=== PATIENT | male | born 2000 | race Caucasian/White ===

== ENCOUNTER 2022-10-20 11:11 | Inpatient (IN) | payer OTHER ==
[~2022-10-20] VITALS: Ht 182.9 cm; Wt 115.7 kg
[2022-10-20 14:00] VITALS: BP 130/75; TEMP 98.5; O2SAT 97
[2022-10-20] MEDS ORDERED: NALOXONE INJ 0.4MG/1ML VIAL IV PRN (15:40)
[2022-10-20] MEDS ORDERED: traZODone 25MG PER 1/2 TABLET PO PRN (15:50)
[2022-10-20] MEDS ORDERED: HOME MED LIST COMPLETE! XX SCH (17:40)
[2022-10-20 20:00] VITALS: BP 128/74; TEMP 98.7; O2SAT 98
[2022-10-20] MEDS ORDERED: MIRA1POW3 PO (21:13)
[2022-10-20] MEDS ORDERED: METH-1164 PO (21:13)
[2022-10-20] MEDS ORDERED: LOVE1INJ2 SC (21:13)
[2022-10-20] MEDS ORDERED: C 50TAB PO (21:13)
[2022-10-20] MEDS ORDERED: VITMTA PO (21:13)
[2022-10-20] MEDS ORDERED: VITA200032 PO (21:13)
[2022-10-20] MEDS ORDERED: ACET-897 PO (21:13)
[2022-10-20] MEDS ORDERED: DILA2TAB6 PO (21:13)
[2022-10-20] MEDS: DOCUSATE SODIUM 100MG CAPSULE PO SCH (21:20)
[2022-10-20] MEDS: SENNA 8.6 MG TAB (SENOKOT) PO SCH (21:20)
[2022-10-20] MEDS: oxyCODONE 5MG TAB PO PRN (21:21)
[2022-10-20] MEDS: ENOXAPARIN 30MG/0.3ML SYRINGE (J1650 PER 10MG) SC SCH (21:24)
[2022-10-20] MEDS: GABAPENTIN 300 MG CAP PO SCH (21:24)
[2022-10-20] MEDS: ACETAMINOPHEN 500 MG TAB PO SCH (21:24)
[2022-10-21 06:00] VITALS: BP 128/70; TEMP 98.1; O2SAT 97
[2022-10-21 06:36] LABS: BASO # 0.1 10^3/uL (0.0-0.2); BASO % 0.6 % (0.0-1.0); EOS # 0.4 10^3/uL (0.0-0.5); EOS % 4.1 % (0.0-3.0); HEMATOCRIT 28.8 % (42.0-52.0); HEMOGLOBIN 9.6 g/dl (13.5-17.5); LYMPH # 1.8 10^3/uL (1.5-5.0); MEAN CORPUSCULAR HEMOGLOBIN 29.2 pg (27.0-33.0); MEAN CORPUSCULAR HGB CONC 33.3 g/dl (32.0-36.5); MEAN CORPUSCULAR VOLUME 87.5 fl (80.0-96.0); MONO # 0.9 10^3/uL (0.0-0.8); MONO % 8.7 % (2.0-8.0); NEUTROPHILS # 6.4 10^3/uL (1.5-8.5); NEUTROPHILS % 65.3 % (36.0-66.0); PLATELET COUNT, AUTOMATED 383 10^3/uL (150-450); RED BLOOD COUNT 3.29 10^6/uL (4.30-6.10); WHITE BLOOD COUNT 9.7 10^3/uL (4.0-10.0)
[2022-10-21 07:25] LABS: ALKALINE PHOSPHATASE 181 U/L (46-116); ALT/SGPT 121 U/L (7.0-40); AST/SGOT 77 U/L (<34); BILIRUBIN,TOTAL 0.7 MG/DL (0.3-1.2); BLOOD UREA NITROGEN 17 MG/DL (9-23); CALCIUM LEVEL 9.1 MG/DL (8.5-10.1); CARBON DIOXIDE LEVEL 26 MMOL/L (20-31); CHLORIDE LEVEL 102 MMOL/L (98-107); CREATININE FOR GFR 0.64 MG/DL (0.70-1.30); GLOMERULAR FILTRATION RATE > 60.0 (>60); GLUCOSE, FASTING 99 MG/DL (60-100); POTASSIUM SERUM 4.3 MMOL/L (3.5-5.1); SODIUM LEVEL 136 MMOL/L (136-145); TOTAL PROTEIN 6.6 G/DL (5.7-8.2)
[2022-10-21] MEDS: ENOXAPARIN 30MG/0.3ML SYRINGE (J1650 PER 10MG) SC SCH ×2 (07:34→20:57)
[2022-10-21] MEDS: PANTOPRAZOLE 40MG TAB (PROTONIX) PO SCH (07:34)
[2022-10-21] MEDS: CYCLOBENZAPRINE 5MG TABLET PO PRN (07:34)
[2022-10-21] MEDS: ACETAMINOPHEN 500 MG TAB PO SCH ×3 (07:35→20:55)
[2022-10-21] MEDS: ASCORBIC ACID 500 MG TAB PO SCH (07:35)
[2022-10-21] MEDS: VITAMIN D 1,000 INTERNATIONAL UNITS TABLET PO SCH (07:35)
[2022-10-21] MEDS: GABAPENTIN 300 MG CAP PO SCH ×3 (07:35→20:54)
[2022-10-21] MEDS: oxyCODONE 5MG TAB PO PRN (07:36)
[2022-10-21] MEDS: DOCUSATE SODIUM 100MG CAPSULE PO SCH ×2 (07:36→20:54)
[2022-10-21] MEDS: HYDROmorphone 2 MG TAB PO PRN (12:19)
[2022-10-21 14:00] VITALS: BP 132/71; TEMP 98; O2SAT 100
[2022-10-21 14:53] LABS: HEPATITIS B SURFACE ANTIGEN NEGATIVE (NEGATIVE)
[2022-10-21 15:14] LABS: HEPATITIS C VIRUS ABY INDEX 0.2 INDEX (<0.8)
[2022-10-21 15:15] LABS: HEPATITIS B CORE ANTIBODY IGM NEGATIVE (NEGATIVE)
[2022-10-21 20:45] VITALS: BP 129/69; TEMP 98.3; O2SAT 95
[2022-10-21] MEDS: SENNA 8.6 MG TAB (SENOKOT) PO SCH (20:54)
[2022-10-22 06:23] VITALS: BP 133/69; TEMP 98.2; O2SAT 96
[2022-10-22] MEDS: CYCLOBENZAPRINE 5MG TABLET PO PRN ×2 (07:03→20:25)
[2022-10-22] MEDS: HYDROmorphone 2 MG TAB PO PRN ×2 (07:03→20:25)
[2022-10-22] MEDS: DOCUSATE SODIUM 100MG CAPSULE PO SCH ×2 (09:00→20:24)
[2022-10-22] MEDS: oxyCODONE 5MG TAB PO PRN (09:41)
[2022-10-22] MEDS: ACETAMINOPHEN 500 MG TAB PO SCH ×3 (09:41→21:00)
[2022-10-22] MEDS: PANTOPRAZOLE 40MG TAB (PROTONIX) PO SCH (09:42)
[2022-10-22] MEDS: VITAMIN D 1,000 INTERNATIONAL UNITS TABLET PO SCH (09:42)
[2022-10-22] MEDS: ENOXAPARIN 30MG/0.3ML SYRINGE (J1650 PER 10MG) SC SCH ×2 (09:42→20:23)
[2022-10-22] MEDS: GABAPENTIN 300 MG CAP PO SCH ×3 (09:42→20:24)
[2022-10-22] MEDS: ASCORBIC ACID 500 MG TAB PO SCH (09:42)
[2022-10-22 14:00] VITALS: BP 135/77; TEMP 97.6; O2SAT 99
[2022-10-22] MEDS: SENNA 8.6 MG TAB (SENOKOT) PO SCH (20:24)
[2022-10-22 20:31] VITALS: BP 140/82; TEMP 98.2; O2SAT 96
[2022-10-23 05:05] VITALS: BP 122/62; TEMP 98.4; O2SAT 96
[2022-10-23 06:55] LABS: BASO # 0.1 10^3/uL (0.0-0.2); BASO % 0.8 % (0.0-1.0); EOS # 0.3 10^3/uL (0.0-0.5); EOS % 3.4 % (0.0-3.0); HEMATOCRIT 28.4 % (42.0-52.0); HEMOGLOBIN 9.2 g/dl (13.5-17.5); LYMPH # 1.8 10^3/uL (1.5-5.0); LYMPH % 21.6 % (24.0-44.0); MEAN CORPUSCULAR HEMOGLOBIN 28.8 pg (27.0-33.0); MEAN CORPUSCULAR HGB CONC 32.4 g/dl (32.0-36.5); MEAN CORPUSCULAR VOLUME 88.8 fl (80.0-96.0); MONO # 0.8 10^3/uL (0.0-0.8); NEUTROPHILS # 5.1 10^3/uL (1.5-8.5); NEUTROPHILS % 60.4 % (36.0-66.0); PLATELET COUNT, AUTOMATED 407 10^3/uL (150-450); WHITE BLOOD COUNT 8.5 10^3/uL (4.0-10.0)
[2022-10-23 07:26] LABS: BLOOD UREA NITROGEN 16 MG/DL (9-23); CALCIUM LEVEL 8.4 MG/DL (8.5-10.1); CARBON DIOXIDE LEVEL 26 MMOL/L (20-31); CHLORIDE LEVEL 104 MMOL/L (98-107); GLOMERULAR FILTRATION RATE > 60.0 (>60); GLUCOSE, FASTING 102 MG/DL (60-100); POTASSIUM SERUM 4.3 MMOL/L (3.5-5.1); SODIUM LEVEL 138 MMOL/L (136-145)
[2022-10-23] MEDS: ENOXAPARIN 30MG/0.3ML SYRINGE (J1650 PER 10MG) SC SCH ×2 (07:45→20:57)
[2022-10-23] MEDS: ASCORBIC ACID 500 MG TAB PO SCH (07:47)
[2022-10-23] MEDS: VITAMIN D 1,000 INTERNATIONAL UNITS TABLET PO SCH (07:47)
[2022-10-23] MEDS: DOCUSATE SODIUM 100MG CAPSULE PO SCH ×2 (07:47→20:56)
[2022-10-23] MEDS: ACETAMINOPHEN 500 MG TAB PO SCH ×3 (07:47→20:57)
[2022-10-23] MEDS: CYCLOBENZAPRINE 5MG TABLET PO PRN ×2 (07:48→13:52)
[2022-10-23] MEDS: PANTOPRAZOLE 40MG TAB (PROTONIX) PO SCH (07:48)
[2022-10-23] MEDS: GABAPENTIN 300 MG CAP PO SCH ×3 (07:48→20:56)
[2022-10-23] MEDS: oxyCODONE 5MG TAB PO PRN ×2 (07:49→13:52)
[2022-10-23 19:24] VITALS: BP 128/72; TEMP 98.1; O2SAT 99
[2022-10-23] MEDS: SENNA 8.6 MG TAB (SENOKOT) PO SCH (20:56)
[2022-10-24 06:23] VITALS: BP 120/67; TEMP 97.6; O2SAT 99
[2022-10-24] MEDS: CYCLOBENZAPRINE 5MG TABLET PO PRN ×2 (06:27→15:19)
[2022-10-24] MEDS: oxyCODONE 5MG TAB PO PRN ×2 (06:28→15:20)
[2022-10-24] MEDS: GABAPENTIN 300 MG CAP PO SCH ×3 (08:53→20:28)
[2022-10-24] MEDS: PANTOPRAZOLE 40MG TAB (PROTONIX) PO SCH (08:54)
[2022-10-24] MEDS: ACETAMINOPHEN 500 MG TAB PO SCH ×3 (08:54→20:28)
[2022-10-24] MEDS: VITAMIN D 1,000 INTERNATIONAL UNITS TABLET PO SCH (08:54)
[2022-10-24] MEDS: ASCORBIC ACID 500 MG TAB PO SCH (08:54)
[2022-10-24] MEDS: ENOXAPARIN 30MG/0.3ML SYRINGE (J1650 PER 10MG) SC SCH ×2 (08:55→20:28)
[2022-10-24] MEDS: DOCUSATE SODIUM 100MG CAPSULE PO SCH ×2 (08:56→19:32)
[2022-10-24 14:00] VITALS: BP 125/72; TEMP 98.2; O2SAT 100
[2022-10-24 19:09] VITALS: BP 116/61; TEMP 97; O2SAT 100
[2022-10-24] MEDS: SENNA 8.6 MG TAB (SENOKOT) PO SCH (19:32)
[2022-10-25 05:23] VITALS: BP 125/68; TEMP 97.2; O2SAT 100
[2022-10-25] MEDS: ACETAMINOPHEN 500 MG TAB PO SCH ×3 (08:32→22:13)
[2022-10-25] MEDS: PANTOPRAZOLE 40MG TAB (PROTONIX) PO SCH (08:32)
[2022-10-25] MEDS: GABAPENTIN 300 MG CAP PO SCH ×3 (08:32→21:00)
[2022-10-25] MEDS: DOCUSATE SODIUM 100MG CAPSULE PO SCH ×2 (08:32→21:00)
[2022-10-25] MEDS: VITAMIN D 1,000 INTERNATIONAL UNITS TABLET PO SCH (08:33)
[2022-10-25] MEDS: CYCLOBENZAPRINE 5MG TABLET PO PRN (08:34)
[2022-10-25] MEDS: ENOXAPARIN 30MG/0.3ML SYRINGE (J1650 PER 10MG) SC SCH ×2 (08:34→22:12)
[2022-10-25] MEDS: ASCORBIC ACID 500 MG TAB PO SCH (08:34)
[2022-10-25] MEDS: oxyCODONE 5MG TAB PO PRN (08:34)
[2022-10-25 14:00] VITALS: BP 117/70; TEMP 97.2; O2SAT 98
[2022-10-25 20:00] VITALS: BP 103/51; TEMP 97; O2SAT 100
[2022-10-25] MEDS: SENNA 8.6 MG TAB (SENOKOT) PO SCH (21:00)
[2022-10-26 06:00] VITALS: BP 121/58; TEMP 96.8; O2SAT 98
[2022-10-26] MEDS: CYCLOBENZAPRINE 5MG TABLET PO PRN (06:32)
[2022-10-26] MEDS: HYDROmorphone 2 MG TAB PO PRN (06:34)
[2022-10-26] MEDS: DOCUSATE SODIUM 100MG CAPSULE PO SCH ×2 (09:00→19:50)
[2022-10-26] MEDS: ASCORBIC ACID 500 MG TAB PO SCH (09:10)
[2022-10-26] MEDS: PANTOPRAZOLE 40MG TAB (PROTONIX) PO SCH (09:10)
[2022-10-26] MEDS: VITAMIN D 1,000 INTERNATIONAL UNITS TABLET PO SCH (09:10)
[2022-10-26] MEDS: GABAPENTIN 300 MG CAP PO SCH ×3 (09:10→19:50)
[2022-10-26] MEDS: ACETAMINOPHEN 500 MG TAB PO SCH ×3 (09:10→21:00)
[2022-10-26] MEDS: ENOXAPARIN 30MG/0.3ML SYRINGE (J1650 PER 10MG) SC SCH (09:11)
[2022-10-26 14:00] VITALS: BP 141/71; TEMP 98; O2SAT 100
[2022-10-26] MEDS: SENNA 8.6 MG TAB (SENOKOT) PO SCH (19:51)
[2022-10-26 20:00] VITALS: BP 140/65; TEMP 97.1; O2SAT 98
[2022-10-27 06:00] VITALS: BP 129/68; TEMP 96.5; O2SAT 95
[2022-10-27] MEDS: CYCLOBENZAPRINE 5MG TABLET PO PRN (06:19)
[2022-10-27] MEDS: HYDROmorphone 2 MG TAB PO PRN (06:20)
[2022-10-27 07:38] LABS: ALBUMIN 3.7 G/DL (3.2-5.2); ALKALINE PHOSPHATASE 235 U/L (46-116); ALT/SGPT 61 U/L (7.0-40); AST/SGOT 23 U/L (<34); BILIRUBIN,TOTAL 0.6 MG/DL (0.3-1.2); BLOOD UREA NITROGEN 15 MG/DL (9-23); CALCIUM LEVEL 9.5 MG/DL (8.5-10.1); CARBON DIOXIDE LEVEL 26 MMOL/L (20-31); CHLORIDE LEVEL 103 MMOL/L (98-107); CREATININE FOR GFR 0.67 MG/DL (0.70-1.30); GLOMERULAR FILTRATION RATE > 60.0 (>60); GLUCOSE, FASTING 100 MG/DL (60-100); POTASSIUM SERUM 4.3 MMOL/L (3.5-5.1); SODIUM LEVEL 138 MMOL/L (136-145); TOTAL PROTEIN 7.3 G/DL (5.7-8.2)
[2022-10-27] MEDS: DOCUSATE SODIUM 100MG CAPSULE PO SCH ×2 (09:00→19:31)
[2022-10-27] MEDS: PANTOPRAZOLE 40MG TAB (PROTONIX) PO SCH (09:42)
[2022-10-27] MEDS: ACETAMINOPHEN 500 MG TAB PO SCH ×3 (09:42→20:04)
[2022-10-27] MEDS: VITAMIN D 1,000 INTERNATIONAL UNITS TABLET PO SCH (09:42)
[2022-10-27] MEDS: ENOXAPARIN 40MG/0.4ML SYRINGE (J1650 PER 10MG) SC SCH (09:42)
[2022-10-27] MEDS: ASCORBIC ACID 500 MG TAB PO SCH (09:42)
[2022-10-27] MEDS: GABAPENTIN 300 MG CAP PO SCH ×3 (09:42→20:04)
[2022-10-27 14:00] VITALS: BP 135/75; TEMP 97.7; O2SAT 100
[2022-10-27] MEDS: SENNA 8.6 MG TAB (SENOKOT) PO SCH (19:32)
[2022-10-27 20:00] VITALS: BP 130/62; TEMP 98.1; O2SAT 99
[2022-10-28 06:00] VITALS: BP 124/66; TEMP 98; O2SAT 98
[2022-10-28 06:15] LABS: BASO # 0.1 10^3/uL (0.0-0.2); BASO % 0.9 % (0.0-1.0); EOS # 0.2 10^3/uL (0.0-0.5); HEMATOCRIT 32.8 % (42.0-52.0); HEMOGLOBIN 10.3 g/dl (13.5-17.5); LYMPH % 35.9 % (24.0-44.0); MEAN CORPUSCULAR HEMOGLOBIN 28.1 pg (27.0-33.0); MEAN CORPUSCULAR HGB CONC 31.4 g/dl (32.0-36.5); MEAN CORPUSCULAR VOLUME 89.4 fl (80.0-96.0); MONO # 0.5 10^3/uL (0.0-0.8); MONO % 8.5 % (2.0-8.0); NEUTROPHILS # 2.7 10^3/uL (1.5-8.5); NEUTROPHILS % 48.4 % (36.0-66.0); PLATELET COUNT, AUTOMATED 399 10^3/uL (150-450); RED BLOOD COUNT 3.67 10^6/uL (4.30-6.10); WHITE BLOOD COUNT 5.6 10^3/uL (4.0-10.0)
[2022-10-28 06:43] LABS: BLOOD UREA NITROGEN 13 MG/DL (9-23); CALCIUM LEVEL 9.6 MG/DL (8.5-10.1); CARBON DIOXIDE LEVEL 27 MMOL/L (20-31); CHLORIDE LEVEL 104 MMOL/L (98-107); CREATININE FOR GFR 0.69 MG/DL (0.70-1.30); GLOMERULAR FILTRATION RATE > 60.0 (>60); GLUCOSE, FASTING 96 MG/DL (60-100); POTASSIUM SERUM 4.4 MMOL/L (3.5-5.1); SODIUM LEVEL 139 MMOL/L (136-145)
[2022-10-28] MEDS: ENOXAPARIN 40MG/0.4ML SYRINGE (J1650 PER 10MG) SC SCH (07:31)
[2022-10-28] MEDS: PANTOPRAZOLE 40MG TAB (PROTONIX) PO SCH (07:32)
[2022-10-28] MEDS: ACETAMINOPHEN 500 MG TAB PO SCH ×3 (07:32→20:28)
[2022-10-28] MEDS: CYCLOBENZAPRINE 5MG TABLET PO PRN (07:32)
[2022-10-28] MEDS: ASCORBIC ACID 500 MG TAB PO SCH (07:32)
[2022-10-28] MEDS: VITAMIN D 1,000 INTERNATIONAL UNITS TABLET PO SCH (07:32)
[2022-10-28] MEDS: HYDROmorphone 2 MG TAB PO PRN (07:32)
[2022-10-28] MEDS: GABAPENTIN 300 MG CAP PO SCH ×3 (07:33→20:28)
[2022-10-28] MEDS: DOCUSATE SODIUM 100MG CAPSULE PO SCH ×2 (07:33→19:32)
[2022-10-28 14:00] VITALS: BP 116/73; TEMP 97.1; O2SAT 98
[2022-10-28] MEDS: SENNA 8.6 MG TAB (SENOKOT) PO SCH (19:32)
[2022-10-28 20:44] VITALS: BP 122/67; TEMP 97.6; O2SAT 100
[2022-10-29 06:00] VITALS: BP 127/78; TEMP 97.7; O2SAT 97
[2022-10-29 06:09] LABS: HEMATOCRIT 34.1 % (42.0-52.0); HEMOGLOBIN 10.9 g/dl (13.5-17.5); MEAN CORPUSCULAR HEMOGLOBIN 28.4 pg (27.0-33.0); MEAN CORPUSCULAR VOLUME 88.8 fl (80.0-96.0); PLATELET COUNT, AUTOMATED 378 10^3/uL (150-450); RED BLOOD COUNT 3.84 10^6/uL (4.30-6.10); WHITE BLOOD COUNT 5.5 10^3/uL (4.0-10.0)
[2022-10-29] MEDS: DOCUSATE SODIUM 100MG CAPSULE PO SCH ×2 (08:07→19:25)
[2022-10-29] MEDS: ENOXAPARIN 40MG/0.4ML SYRINGE (J1650 PER 10MG) SC SCH (08:07)
[2022-10-29] MEDS: GABAPENTIN 300 MG CAP PO SCH ×3 (08:15→21:00)
[2022-10-29] MEDS: ASCORBIC ACID 500 MG TAB PO SCH (08:22)
[2022-10-29] MEDS: VITAMIN D 1,000 INTERNATIONAL UNITS TABLET PO SCH (08:22)
[2022-10-29] MEDS: ACETAMINOPHEN 500 MG TAB PO SCH ×3 (08:22→20:18)
[2022-10-29] MEDS: PANTOPRAZOLE 40MG TAB (PROTONIX) PO SCH (08:22)
[2022-10-29] MEDS ORDERED: GABA-282 PO (11:24)
[2022-10-29] MEDS ORDERED: CYCL5TAB PO (11:24)
[2022-10-29] MEDS ORDERED: OXYC-517 PO (11:24)
[2022-10-29] MEDS ORDERED: XARE10TA PO (11:27)
[2022-10-29 14:00] VITALS: BP 134/79; TEMP 98.4; O2SAT 99
[2022-10-29] MEDS: SENNA 8.6 MG TAB (SENOKOT) PO SCH (19:25)
[2022-10-29 20:00] VITALS: BP 125/68; TEMP 97.8; O2SAT 99
[2022-10-30 06:00] VITALS: BP 123/78; TEMP 97.2; O2SAT 98
[2022-10-30] MEDS: PANTOPRAZOLE 40MG TAB (PROTONIX) PO SCH (08:54)
[2022-10-30] MEDS: ASCORBIC ACID 500 MG TAB PO SCH (08:54)
[2022-10-30] MEDS: VITAMIN D 1,000 INTERNATIONAL UNITS TABLET PO SCH (08:54)
[2022-10-30] MEDS: ENOXAPARIN 40MG/0.4ML SYRINGE (J1650 PER 10MG) SC SCH (08:55)
[2022-10-30] MEDS: GABAPENTIN 300 MG CAP PO SCH (08:55)
[2022-10-30] MEDS: ACETAMINOPHEN 500 MG TAB PO SCH (08:55)
[2022-10-30] MEDS: DOCUSATE SODIUM 100MG CAPSULE PO SCH (08:55)
== END 2022-10-30 14:00 | disposition home or self-care (01) | DRG 862 ==
LOC: M PM&R 15:10
PROVIDERS: ADMIT Physical Medicine & Rehabilitation; ATTEND Physical Medicine & Rehabilitation
DX: S72.22XD Displaced subtrochanteric fracture of left femur, subsequent encounter for closed fracture with routine healing (principal); S42.402D Unspecified fracture of lower end of left humerus, subsequent encounter for fracture with routine healing; S32.10XD Unspecified fracture of sacrum, subsequent encounter for fracture with routine healing; S32.501D Unspecified fracture of right pubis, subsequent encounter for fracture with routine healing; R26.89 Other abnormalities of gait and mobility; Z74.09 Other reduced mobility; Z74.1 Need for assistance with personal care; Z79.899 Other long term (current) drug therapy